=== PATIENT | male | born 1960 | race Caucasian/White ===

== ENCOUNTER 2017-11-24 15:15 | Emergency (ER) | payer OTHER ==
[~2017-11-24] VITALS: Ht 185.4 cm; Wt 113.4 kg
[2017-11-24] MEDS ORDERED: VITAMIN D-32000 UNIT PO (15:30)
[2017-11-24] MEDS ORDERED: NEPHROCAPS SOFT1 CAP PO (15:30)
[2017-11-24] MEDS ORDERED: FISH OIL 1,001000 M2 PO (15:30)
[2017-11-24] MEDS ORDERED: VITAMINC500 PO (15:31)
[2017-11-24] MEDS ORDERED: PROMETHAZINE V473 ML PO (16:41)
[2017-11-24] MEDS ORDERED: TESSALON PERLE100 MG PO (16:41)
[2017-11-24] MEDS ORDERED: ZPAK PO (16:41)
[2017-11-24 16:47] VITALS: BP 117/74
== END 2017-11-24 16:49 | disposition home or self-care (01) ==
LOC: M.ERS 15:15
DX: R05 Cough (principal); E78.00 Pure hypercholesterolemia, unspecified

== ENCOUNTER 2018-07-17 00:04 | Inpatient (IN) | payer OTHER ==
[~2018-07-17] VITALS: Ht 185.4 cm; Wt 119.7 kg
[2018-07-17] VITALS (17 sets, daily range): BP systolic 96–157; BP diastolic 62–92
[~2018-07-17 00:04] MED LIST: FISH OIL 1,001000 M2 PO; NEPHROCAPS SOFT1 CAP PO; PROMETHAZINE V473 ML PO; TESSALON PERLE100 MG PO; VITAMIN D-32000 UNIT PO; VITAMINC500 PO; ZPAK PO
[2018-07-17 00:40] LABS: ABSOLUTE BASOPHILS 0.1 thou/uL (0.0-0.2); ABSOLUTE EOSINOPHILS 0.2 thou/uL (0.0-0.7); ABSOLUTE LYMPHOCYTES 1.5 thou/uL (0.8-5.3); ABSOLUTE MONOCYTES 0.4 thou/uL (0.0-1.2); ABSOLUTE NEUTROPHILS 8.7 thou/uL (1.6-8.1); BASOPHILS 0.5 %; EOSINOPHILS 1.8 %; LYMPHOCYTES 13.5 %; MCH 33.3 pg (26.0-34.0); MCHC 34.7 g/dL (28.0-37.0); MONOCYTES 3.3 %; MPV 8.5 fl. (7.2-11.1); NUCLEATED RBCS 0 /100WBC; PLATELET COUNT* 199 thou/uL (150-400); POLYS 80.9 %; RDW-CV 13.5 % (10.5-14.5); WBC 10.8 thou/uL (4.0-11.0)
[2018-07-17 00:49] LABS: PROTIME 10.7 Seconds (9.20-11.50)
[2018-07-17 00:52] LABS: CALCIUM 8.9 mg/dL (8.5-10.1); CREATININE 1.5 mg/dL (0.6-1.3); POTASSIUM 3.6 mmol/L (3.5-5.1)
[2018-07-17 01:03] LABS: ALBUMIN 3.6 g/dL (3.4-5.0); TOTAL BILIRUBIN 0.7 mg/dL (<0.1-1.0); TOTAL PROTEIN 6.8 g/dL (6.4-8.2); TROPONIN-I LEVEL 0.07 ng/mL (<0.06)
--- NOTE | 2018-07-17 05:58 | NUR ---
RECEIVED REPORT FROM ED RN. PT TRANSFERRED TO 233. PT A&OX4. VSS. ADMISSION HSITORY AND PHYSICAL ASSESSMENT COMPLETED AND CHARTED. FALL FORM SIGNED. PT ON RA WITH 95% O2 SAT. PT TRACING SR ON TELE. PT UP ADLIB TO RESTROOM. PT ON HEPARIN DRIP ORDERED. ORIENTED TO ROOM & CALL LIGHT. PT HAS CRITICAL HIGH TROPONIN OF 2.25- DR VILLARREAL INFORMED. PT RESTED WELL ON BED. CALL LIGHT WITHIN REACH.
--- NOTE | 2018-07-17 10:50 | NUR ---
ASSUMED PT CARE AT 0730 REPORT RECEIVED FROM NURSE. PT IS AOX4 SR ON KIER BOILER. ON RA ANS SATURATION 96%. PT LYING IN BED. NS AT 125 PER HOUR, HEPARIN DRIP AT 10 PER HOUR. NO COMPLAINT OF PAIN. CRITICAL TROPONIN LEVEL AT 0800. COMMUNICATED TO ENDY NURSE PRACTITIONER. DR MASON SAW PT IN ROOM AND PLAN ON DOING CARDIAC CATH AT 1200 TODAY. PT MAINTAINED NPO. CONSENT SIGNED BY PT AND PLACED IN CHART. APPT RESULT 44. 7 FROM THIS AM. 30 UNIT/KG OF HEPRAIN BOLUS GIVEN AND DRIP INCREASED BY 2 UNITS PER PROTOCOL. JACOBO CONTINUE TO MONITOR.
--- NOTE | 2018-07-17 13:59 | EKG ---
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
--- NOTE | 2018-07-17 15:35 | EKG ---
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
--- NOTE | 2018-07-17 17:54 | NUR ---
PT POST CATH CAME UP AT 1540 VIA BED ON IV FLUID AT 125 PER HOUR HEPARIN DRIP STOPPED PER ORDER. SR ON POT RUNNER HR 70S. PT AOX4 NO PAIN NO BLEEDING. VS 125/87 TEMP 98.7. RADSTAT 2CC OF AIR OUT. PT URINE OUTPUT AT 1750 IS 250 CC . PT CONSUMED FOOD. HOB ELEVATED TO 30 DEGREE. WILL CONTINUE TO MONITOR
--- NOTE | 2018-07-17 18:35 | NUR ---
PT Q15MIN VS MONITORED SEE CHART
--- NOTE | 2018-07-17 18:44 | CARD ---
[facility] [address] [place] [address] CARDIAC CATH REPORT Name: JOSELINE FRYE Room: [facility] IN [facility]#: [id number] Admission: 07/17/18 Attend Phys: Juan Bedolla MD Discharge: Date of : 60 Report #: [id number] THIS REPORT FOR: //name// APPROVED REPORT Study performed: 07/17/2018 12:47:39 Patient Details Patient Status: In-Patient Room #: 233 The patient is a 58 year-old male Event Personnel Jim Bland Gambling Broker, Rocio Palacios Fairing Man, Bandar Pearson (R) Monitor, Carmella Noriega RTR Scrub, Belle Love RN Fairing Man Procedures Performed ROHAN Place w/wo Plasty Single LAD Indication Non-STEMI , Palpitations, Chest pain Risk Factors Hypercholesterolemia, Tobacco History () Admission/Lab Medications/Medications given during procedure Glycoprotein IllbIlla Inhibitors, Heparin Unfract. Procedure Narrative The patient was brought electively to the Cardiac Catheterization Laboratory and was prepped and draped in a sterile manner. The right wrist was infiltrated with 1% Lidocaine subcutaneous anesthesia. A Slender Glidesheath sheath was inserted into the right radial artery. Coronary angiography was performed using coronary diagnostic catheters. The right coronary system was accessed and visualized with a Diagnostic JR4 catheter. The left coronary system was accessed and visualized with a Diagnostic JL4 catheter. The left ventricle was accessed and visualized with a Diagnostic Angled Pig catheter. Left ventricular/Aortic Valve gradient assessed via catheter pullback. Left ventriculogram was performed in GARCIA projection. Closure device was deployed with a 6 Fr Long VascBand. The patient tolerated the procedure well and there were no complications associated with the procedure. [place] [address] CARDIAC CATH REPORT Name: JOSELINE FRYE Room: [address]#: [id number] Admission: 07/17/18 Attend Phys: Juan Bedolla MD Discharge: Date of : 60 Report #: [id number] Intraoperative Conscious Sedation Sedation start time: 14:24 Case end Time: 15.15 Fentanyl 50 mcg Versed 2 mg Fluoro Time: 7.1 minutes Dose: DAP [id number] cGycm2 1663 mGy Contrast Type and Amount: Visipaque 220 ml Coronary Angiography The patient's coronary anatomy is right dominant. Diagnostic Cath Left Main 0% stenosis LAD 80% mid stenosis Circumflex 70% proximal stenosis Right Coronary 50% proximal and 40% distal stenosis Ramus 0% stenosis Left Ventriculography The left ventricle is normal in size with normal contractility. The left ventricular ejection fraction is estimated to be 55-60%. Left ventricular wall motion abnormalities are not present. There is no mitral insufficiency. Hemodynamics The aortic pressure is 100/63 mmHg with a mean of 82 mmHg. The left ventricular pressure is 100/6 mmHg with a mean of mmHg. The left ventricular end diastolic pressure is 7 mmHg. There was no gradient across the aortic valve upon pullback. Pullback from the left ventricle to the aorta revealed no gradient across the aortic valve. PCI Technique Lesion Anticoagulation was achieved with Heparin. bolus of iv aggrastat given Percutaneous coronary intervention was performed on the mid left anterior descending artery segment. The lesion stenosis prior to intervention was 80% with ROSE 3 flow. A 6F XB LAD 3.5 Guide Catheter was used to engage the lm ostium. A IG: BMW 190cm Interventional Guidewire was used to cross the lesion. BALLOON DILATION A Balloon catheter Trek RX 2.5 X 8 was inserted and inflated up to 12.00atm for 17seconds. Repeat angiography revealed the following post-dilatation results: 40% [place] [address] CARDIAC CATH REPORT Name: JOSELINE FRYE Room: [address]#: [id number] Admission: 07/17/18 Attend Phys: Juan Bedolla MD Discharge: Date of : 60 Report #: [id number] STENT DEPLOYMENT A drug-eluting stent Xience Darlene 2.14J49ys was inserted and inflated up to 10.00atm for 16seconds. Repeat angiography revealed the following post-stent deployment results: 0% stenosis. Additional Inflation: 16.00atm for 18seconds. Additional Inflation: 18.00atm for 12seconds. Final angiography reveals 0 % stenosis with ROSE 3 flow. Conclusion 1. 80% stenosis of the mid lad, and 70% stenosis of the proximal circumflex 2. normal LV function 3. successful placement of a drug eluting stent in the lad Recommendations Smoking Cessation Cardiac Rehabilitation Referral Aggressive Medical Therapy Medications Administered Clopidogrel <ELECTRONICALLY SIGNED> By: Jim Bland MD, [facility] 07/17/18 1844 43 1844Dshanice Bland MD, FAC /INF
[2018-07-18] VITALS (8 sets, daily range): BP systolic 114–127; BP diastolic 71–79
[2018-07-18 05:11] LABS: HEMATOCRIT 42.7 % (42.0-52.0); HEMOGLOBIN 14.5 gm/dL (14.0-18.0); MCH 32.9 pg (26.0-34.0); MCHC 34.1 g/dL (28.0-37.0); MCV 96.7 fL (80.0-100.0); MPV 8.9 fl. (7.2-11.1); RBC 4.41 mil/uL (4.50-6.00); RDW-CV 13.6 % (10.5-14.5); WBC 8.1 thou/uL (4.0-11.0)
--- NOTE | 2018-07-18 05:49 | NUR ---
ASSUMED CARE OF PT AFTER REPORT AT 1930. PT A&OX4. VSS. PHSYICAL ASSESSMENT COMPLETED AND CHARTED. PT ON RA WITH 95% O2 SAT. PT TRACING SR/SB ON TELE. PT UP ADLIB TO RESTROOM. POST CATH SITE TO RIGHT RADIAL WITH RAD STAT-REMAINING 3 MLS OF AIR REMOVED PER ORDER. RAD STAT REMOVED. DRESSING APPLIED. CLEAN, DRY & INTACT. NO HEMATOMA OR BLEEDING NOTED. DENIES ANY PAIN OR SOA. PT RESTED WELL ON BED. CALL LIGHT WITHIN REACH. BED IN LOW POSITION.
[2018-07-18 06:06] LABS: ANION GAP 10 mmol/L (7-16); BUN 10 mg/dL (7-18); CALCIUM 7.9 mg/dL (8.5-10.1); CHLORIDE 108 mmol/L (98-107); CHOLESTEROL 129 mg/dL (<200); CO2 22 mmol/L (21-32); CREATININE 1.1 mg/dL (0.6-1.3); GLUCOSE 102 mg/dL (70-99); HDL CHOLESTEROL 23 mg/dL (>40); LDL CHOLESTEROL 79 mg/dL (<100); POTASSIUM 3.3 mmol/L (3.5-5.1); SERUM ASSESSMENT Clear; SODIUM 140 mmol/L (136-145); TC:HDL 5.6 Ratio (Not establshd); TRIGLYCERIDE 138 mg/dL (<150); TROPONIN-I LEVEL 0.58 ng/mL (<0.06); VLDL 28 mg/dL (<40)
[2018-07-18] MEDS ORDERED: ATORVASTATIN CA40 MG PO (09:50)
[2018-07-18] MEDS ORDERED: LOPRESSOR25 PO (09:54)
[2018-07-18] MEDS ORDERED: NITROSTAT0.4 M1 SUBLING (09:58)
[2018-07-18] MEDS ORDERED: PLAVIX 75 MG TA75 M1 PO (10:03)
[2018-07-18] MEDS ORDERED: ASPIR 8181 MG PO (10:11)
[2018-07-18] MEDS ORDERED: TYLENOL325 MG PO (10:28)
--- NOTE | 2018-07-18 10:46 | CON ---
[address] [address] CONSULTATION Name: JOSELINE FRYE Room: [place] [address] ADM IN M.R.#: [id number] Admission: 07/17/18 Attend Phys: Juan Bedolla MD Discharge: Date of : 60 Report #: [id number] THIS REPORT FOR: //name// CC: Juan Bedolla [facility] physician/PCP DATE OF SERVICE: 07/17/2018 HISTORY OF PRESENT ILLNESS: The patient is a 58-year-old single white male who I was asked to see in the hospital today after he had a dizzy spell. The patient has no previous history of heart disease. He is not under physician's care at this time. He does smoke a pack of cigarettes a day and does not exercise. He notes last night about 11:00 at night, he was shooting pool. He then felt lightheaded, short of breath and his heart was pounding. He had to hold on to objects and went outside. He went back inside, finished playing pool, but again felt his heart pounding. He did feel some pressure in his chest. He finally had his daughter bring him to the Emergency Room and he was admitted. He denied the pressure radiating to his arms or jaw. He has had no exertional chest pain. He denied any recent bleeding or cough. He has had a runny nose lately. He denied any pressure related to food. He denied any trauma to his chest. He denied any exertional dyspnea or chronic cough. He has had no syncope or edema. PAST MEDICAL HISTORY: He has had knee surgeries. He has a history of hyperlipidemia, previously on a statin drug, which he ran out of. No history of hypertension or diabetes. ALLERGIES: He has no known drug allergies. FAMILY HISTORY: His mother had congestive heart failure. SOCIAL HISTORY: He is , lives with a girlfriend in [place], [place]. 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 Smokes a pack of cigarettes a day. No alcohol abuse, no illicit drug use. REVIEW OF SYSTEMS: He has had no history of stroke, asthma, peptic ulcer disease, liver disease, kidney disease, cancer, psychiatric illness, chronic skin condition. PHYSICAL EXAMINATION: GENERAL: Revealed a middle-aged male lying in bed, he appeared in no distress. VITAL SIGNS: He had a blood pressure of 110/80, pulse is 80. He is afebrile. HEENT: He is anicteric. Conjunctivae pink. Mucous membranes are moist. NECK: Veins nondistended. No carotid bruits. Neck supple. CHEST: Clear to auscultation. CARDIAC: Regular rate [place]. [place] [address] CONSULTATION Name: JOSELINE FRYE Room: [address] IN [facility]#: [id number] Admission: 07/17/18 Attend Phys: Juan Bedolla MD Discharge: Date of : 60 Report #: [id number] ABDOMEN: Soft, nontender. EXTREMITIES: Had no edema. Posterior pulse 2+ bilaterally. SKIN: Warm, dry. NEUROLOGIC: Nonfocal. LYMPHATIC: No adenopathy. MUSCULOSKELETAL: No joint effusion. RADIOLOGICAL DATA: His ECG on arrival showed a sinus rhythm with no significant ST or T-wave change. On the monitor last night, he remained in sinus rhythm. His workup in the Emergency Room last night, he had portable chest x-ray that showed normal heart size and clear lung [place]. LABORATORY WORK: Sodium 139, BUN 21, creatinine 1.5, glucose 119. Liver function studies were normal. Troponin 2.25. White blood cell count 10.8, hemoglobin 16. IMPRESSION AND RECOMMENDATIONS: 1. Non-ST segment elevation myocardial infarction. Recommend cardiac catheterization. 2. Tobacco abuse. 3. History of hyperlipidemia. The patient is no longer on a statin drug. 4. Dizzy spell. I would rule out arrhythmia. <ELECTRONICALLY SIGNED> By: Jim Bland MD, [facility] 07/18/18 1046 0810 1025Danikhil Bland MD, FAC /nt
--- NOTE | 2018-07-18 10:55 | NUR ---
MET WITH PT AND S/O TO DISCUSS HOME SITUATION/DC PLANNING. PT LIVE WITH S/O IS INDEPENDENT AND ACTIVE. USES NO EQUIPMENT. DENIES ANY DC NEEDS. PLANS TO F/U WITH DR LOPES BUT WILL MAKE OWN APPT. GAVE PT 'S NEW ADDRESS AND PHONE. CARDIAC REHAB IN TO TALK WITH PT
--- NOTE | 2018-07-18 11:49 | NUR ---
ASSUMED PT CARE AT 0730 REPORT RECEIVED FROM NURSE. PT IS AOX4 . NO PAIN.SR ON LAND CLEARER. PLANNING DC TODAY. IV OUT LAND CLEARER OUT. PT IN ROOM . DISCHARGE INSTRUCTION GIVEN. NEW SCRIPTS GIVEN. PT LEFT FLOOR AT 1135 ACCOMPANIED BY NURSE ON WHEELCHAIR
--- NOTE | 2018-07-18 13:44 | EKG ---
[place] [address] ELECTROCARDIOGRAM REPORT Name: JOSELINE FRYE Room: [place] [address] DIS IN M..#: [id number] Admission: 07/17/18 Attend Phys: Juan Bedolla MD Discharge: 07/18/18 Date of : 60 Report #: [id number] THIS REPORT FOR: //name// [facility] Test Date: 2018-07-17 Test Time: 16:07:27 Pat Name: JOSELINE PRESTONAlvin Department: Room: [place] [address] Gender: M Land Manager: : 1960 Requested By: Jim Bland Order Number: [id number] Reading MD: Dillon Lopez Measurements Intervals [place] Rate: 70 P: 38 DE: 191 QRS: 0 QRSD: 103 T: 53 QT: 418 QTc: 452 Interpretive Statements Sinus rhythm Compared to ECG 07/17/2018 01:28:29 No significant changes Electronically Signed On 07-18-2018 13:43:47 EDUCATION REPORTER by Dillon Lopez [email or web address] <ELECTRONICALLY SIGNED> By: Dillon Lopez MD, [facility] 07/18/18 1343 1607 1607 Dillon Lopez MD, [facility] /EPI
--- NOTE | 2018-07-18 13:47 | EKG ---
[place] [address] ELECTROCARDIOGRAM REPORT Name: JOSELINE FRYE Room: [place] [address] DIS IN M.R.#: [id number] Admission: 07/17/18 Attend Phys: Juan Bedolla MD Discharge: 07/18/18 Date of : 60 Report #: [id number] THIS REPORT FOR: //name// [facility] Test Date: 2018-07-18 Test Time: 09:25:19 Pat Name: JOSELINE UDAY Department: Room: [place] [address] Gender: M Briquette Molder: : 1960 Requested By: Jim Bland Order Number: [id number] Reading MD: Dillon Lopez Measurements Intervals [place] Rate: 72 P: 47 CT: 180 QRS: -2 QRSD: 107 T: 59 QT: 416 QTc: 456 Interpretive Statements Sinus rhythm Abnormal R-wave progression, early transition Compared to ECG 07/17/2018 01:28:29 No significant changes Electronically Signed On 07-18-2018 13:47:36 PATIENT SAFETY OFFICER by Dillon Lopez [email or web address] <ELECTRONICALLY SIGNED> By: Dillon Lopez MD, FACC 07/18/18 1347 0925 0925 Dillon Lopez MD, [facility] /EPI
== END 2018-07-18 11:45 | disposition home or self-care (01) | DRG 247 ==
LOC: M.ERS 00:04 → M.TBA-ER 01:38 → M.2W 02:22
PROVIDERS: Emergency Medicine; Internal Medicine Cardiovascular Disease; ADMIT Internal Medicine
PROC: 4A023N7 Measurement of Cardiac Sampling and Pressure, Left Heart, Percutaneous Approach (ICD-10-PCS; principal; 2018-07-17)
PROC: 027034Z Dilation of Coronary Artery, One Artery with Drug-eluting Intraluminal Device, Percutaneous Approach (ICD-10-PCS; principal; 2018-07-17)
PROC: B215YZZ Fluoroscopy of Left Heart using Other Contrast (ICD-10-PCS; principal; 2018-07-17)
PROC: B211YZZ Fluoroscopy of Multiple Coronary Arteries using Other Contrast (ICD-10-PCS; principal; 2018-07-17)
DX: I21.4 Non-ST elevation (NSTEMI) myocardial infarction (principal); E78.00 Pure hypercholesterolemia, unspecified; E78.5 Hyperlipidemia, unspecified; F17.210 Nicotine dependence, cigarettes, uncomplicated; Z86.718 Personal history of other venous thrombosis and embolism; Z79.899 Other long term (current) drug therapy; Z80.0 Family history of malignant neoplasm of digestive organs; Z82.49 Family history of ischemic heart disease and other diseases of the circulatory system

== ENCOUNTER 2018-07-27 13:43 | Emergency (ER) | payer OTHER ==
[~2018-07-27] VITALS: Ht 185.4 cm; Wt 117.9 kg
[~2018-07-27 13:43] MED LIST changes: +ASPIR 8181 MG PO; +ATORVASTATIN CA40 MG PO; +LOPRESSOR25 PO; +NITROSTAT0.4 M1 SUBLING; +PLAVIX 75 MG TA75 M1 PO; +TYLENOL325 MG PO
[2018-07-27 14:37] LABS: ABSOLUTE BASOPHILS 0.1 thou/uL (0.0-0.2); ABSOLUTE EOSINOPHILS 0.2 thou/uL (0.0-0.7); ABSOLUTE MONOCYTES 1.1 thou/uL (0.0-1.2); ABSOLUTE NEUTROPHILS 8.3 thou/uL (1.6-8.1); BASOPHILS 0.6 %; EOSINOPHILS 1.5 %; HEMATOCRIT 44.4 % (42.0-52.0); HEMOGLOBIN 15.2 gm/dL (14.0-18.0); LYMPHOCYTES 16.9 %; MCH 32.6 pg (26.0-34.0); MCHC 34.2 g/dL (28.0-37.0); MCV 95.4 fL (80.0-100.0); MONOCYTES 9.2 %; MPV 8.5 fl. (7.2-11.1); NUCLEATED RBCS 0 /100WBC; PLATELET COUNT* 263 thou/uL (150-400); POLYS 71.8 %; RBC 4.65 mil/uL (4.50-6.00); RDW-CV 13.4 % (10.5-14.5); WBC 11.6 thou/uL (4.0-11.0)
[2018-07-27 14:45] LABS: APTT 26.3 Seconds (25.0-31.3); PROTIME 10.7 Seconds (9.20-11.50)
[2018-07-27 14:51] LABS: ANION GAP 12 mmol/L (7-16); BUN 15 mg/dL (7-18); CALCIUM 8.9 mg/dL (8.5-10.1); CHLORIDE 103 mmol/L (98-107); CO2 26 mmol/L (21-32); GLUCOSE 114 mg/dL (70-99); POTASSIUM 3.7 mmol/L (3.5-5.1); SODIUM 141 mmol/L (136-145)
[2018-07-27 14:55] LABS: ALBUMIN 3.2 g/dL (3.4-5.0); ALKALINE PHOSPHATASE 71 U/L (46-116); SGOT 16 U/L (15-37); SGPT 39 U/L (30-65); TOTAL BILIRUBIN 0.6 mg/dL (<0.1-1.0); TOTAL PROTEIN 6.7 g/dL (6.4-8.2); TROPONIN-I LEVEL <0.06 ng/mL (<0.06)
[2018-07-27] MEDS ORDERED: ANTIVERT25 MG PO (15:29)
[2018-07-27 15:40] VITALS: BP 126/84
--- NOTE | 2018-07-28 13:49 | EKG ---
[place] [address] ELECTROCARDIOGRAM REPORT Name: JOSELINE FRYEE Room: [facility]#: [id number] Admission: 07/27/18 Attend Phys: Discharge: 07/27/18 Date of : 60 Report #: [id number] THIS REPORT FOR: //name// [facility] ED Test Date: 2018-07-27 Test Time: 14:13:22 Pat Name: JOSELINE FRYE Department: Room: Gender: M Wool Shearer: RUFUS : 1960 Requested By: Charli Osborn Order Number: [id number] MD: Dillon Lopez Measurements Intervals [place] Rate: 57 P: 43 [place]: 195 QRS: 14 QRSD: 99 T: 60 QT: 419 QTc: 408 Interpretive Statements Sinus rhythm Abnormal R-wave progression, early transition Compared to ECG 07/18/2018 09:25:19 No significant changes Electronically Signed On 07-28-2018 13:49:06 SENIOR INTERNAL AUDITOR by Dillon Lopez [email or web address] <ELECTRONICALLY SIGNED> By: Dillon Lopez MD, [facility] 07/28/18 1349 1413 1413 Dillon Lopez MD, FAC /EPI
== END 2018-07-27 15:40 | disposition home or self-care (01) ==
LOC: M.ERS 13:43
PROVIDERS: Emergency Medicine
DX: H83.02 Labyrinthitis, left ear (principal); E78.00 Pure hypercholesterolemia, unspecified; Z86.718 Personal history of other venous thrombosis and embolism; Z95.5 Presence of coronary angioplasty implant and graft

== ENCOUNTER 2020-06-12 10:31 | Emergency (ER) | payer OTHER ==
[~2020-06-12] VITALS: Ht 185.4 cm; Wt 124.7 kg
[~2020-06-12 10:31] MED LIST changes: +ANTIVERT25 MG PO
[2020-06-12 10:49] LABS: ABSOLUTE BASOPHILS 0.1 thou/uL (0.0-0.2); ABSOLUTE LYMPHOCYTES 2.1 thou/uL (0.8-5.3); ABSOLUTE MONOCYTES 0.6 thou/uL (0.0-1.2); ABSOLUTE NEUTROPHILS 4.7 thou/uL (1.6-8.1); BASOPHILS 1.2 %; EOSINOPHILS 0.5 %; HEMATOCRIT 50.8 % (42.0-52.0); HEMOGLOBIN 17.4 gm/dL (14.0-18.0); LYMPHOCYTES 28.2 %; MCH 31.9 pg (26.0-34.0); MCHC 34.3 g/dL (28.0-37.0); MONOCYTES 7.7 %; MPV 8.1 fl. (7.2-11.1); NUCLEATED RBCS 0 /100WBC; PLATELET COUNT* 124 thou/uL (150-400); POLYS 62.4 %; RBC 5.46 mil/uL (4.50-6.00); RDW-CV 14.5 % (10.5-14.5); WBC 7.6 thou/uL (4.0-11.0)
[2020-06-12 11:01] LABS: CALCIUM 7.8 mg/dL (8.5-10.1); CREATININE 1.6 mg/dL (0.6-1.3); POTASSIUM 3.6 mmol/L (3.5-5.1)
[2020-06-12 11:02] LABS: APTT 28.8 Seconds (25.0-31.3); PROTIME 10.8 Seconds (9.20-11.50)
[2020-06-12 11:14] LABS: ALBUMIN 3.2 g/dL (3.4-5.0); CK-MB MASS 2.6 ng/mL (<0.5-3.6); MAGNESIUM 1.5 mg/dL (1.8-2.4); TOTAL BILIRUBIN 0.7 mg/dL (<0.1-1.0); TOTAL PROTEIN 7.3 g/dL (6.4-8.2)
[2020-06-12] MEDS ORDERED: PREDNISONE 20 M20 M1 PO (11:37)
[2020-06-12] MEDS ORDERED: ZPAK PO (11:37)
[2020-06-12 11:58] VITALS: BP 105/65
--- NOTE | 2020-06-14 08:55 | EKG ---
[place] [address] ELECTROCARDIOGRAM REPORT Name: JOSELINE FRYE Room: [facility]#: [id number] Admission: 06/12/20 Attend Phys: Discharge: 06/12/20 Date of : 60 Date of Service: 06/12/20 1035 Report #: [id number] THIS REPORT FOR: //name// [facility] ED Test Date: 2020-06-12 Test Time: 10:35:50 Pat Name: JOSELINE FRYE Department: Room: Gender: Vertical Punch Operator: AMANDO : 1960 Requested By: Yuniel Villeda Order Number: [id number] MD: Jim Bland Measurements Intervals [place] Rate: 203 P: 0 [place]: QRS: -8 QRSD: 100 T: 66 QT: 272 QTc: 500 Interpretive Statements Supraventricular tachycardia ST depression, probably rate related Baseline wander in lead(s) I,II,aVR,aVL Compared to ECG 07/27/2018 14:13:22 ST (T wave) deviation now present Sinus rhythm no longer present Electronically Signed On 06-14-2020 8:55:13 PANTS CLOSER by Jim Bland [email or web address] <ELECTRONICALLY SIGNED> By: Jim Bland MD, FACC 06/14/20 0855 1035 Jim Bland MD, FACC /EPI
--- NOTE | 2020-06-14 08:55 | EKG ---
[place] [address] ELECTROCARDIOGRAM REPORT Name: JOSELINE FRYE Room: [facility]#: [id number] Admission: 06/12/20 Attend Phys: Discharge: 06/12/20 Date of : 60 Date of Service: 06/12/20 1044 Report #: [id number] THIS REPORT FOR: //name// [facility] ED Test Date: 2020-06-12 Test Time: 10:44:43 Pat Name: JOSELINE FRYE Department: Room: Gender: Bioinformatics Support Specialist: AMANDO : 1960 Requested By: Yuniel Villeda Order Number: [id number] MD: Jim Bland Measurements Intervals [place] Rate: 107 P: 57 [place]: 169 QRS: 22 QRSD: 94 T: 75 QT: 329 QTc: 439 Interpretive Statements Sinus tachycardia artifact noted Minimal ST depression, lateral leads Baseline wander in lead(s) V6 Compared to ECG 06/12/2020 10:35:50 Supraventricular tachycardia no longer present ST (T wave) deviation still present Electronically Signed On 06-14-2020 8:55:37 CHEMICAL EDUCATOR by Jim Bland [email or web address] <ELECTRONICALLY SIGNED> By: Jim Bland MD, FACC 06/14/20 0855 1044 1044 Jim Bland MD, FACC /EPI
== END 2020-06-12 11:59 | disposition home or self-care (01) ==
LOC: M.ERS 10:31
PROVIDERS: Family Medicine
DX: I47.1 Supraventricular tachycardia (principal); U07.1 COVID-19; E78.00 Pure hypercholesterolemia, unspecified; Z86.718 Personal history of other venous thrombosis and embolism; Z95.5 Presence of coronary angioplasty implant and graft